=== PATIENT | male | born 1945 | race Caucasian/White ===

== ENCOUNTER 2016-06-21 12:05 | Outpatient (CLI) | payer MEDICARE, OTHER | END 2016-06-21 12:06 | disposition home or self-care (01) | DX: E11.29 Type 2 diabetes mellitus with other diabetic kidney complication (principal) ==

== ENCOUNTER 2016-08-23 13:23 | Outpatient (CLI) | payer MEDICARE, OTHER | END 2016-08-23 13:24 | disposition home or self-care (01) | DX: N19 Unspecified kidney failure (principal) ==

== ENCOUNTER 2016-08-27 08:00 | Outpatient (CLI) | payer MEDICARE, OTHER | END 2016-08-27 08:01 | disposition home or self-care (01) | DX: J98.4 Other disorders of lung (principal); I25.10 Atherosclerotic heart disease of native coronary artery without angina pectoris ==

== ENCOUNTER 2016-08-30 13:06 | Outpatient (CLI) | payer MEDICARE, OTHER | END 2016-08-30 13:07 | disposition home or self-care (01) | DX: K52.9 Noninfective gastroenteritis and colitis, unspecified (principal); K92.2 Gastrointestinal hemorrhage, unspecified ==

== ENCOUNTER 2016-08-31 10:57 | Emergency (ER) | payer MEDICARE, OTHER ==
[2016-08-31] MEDS ORDERED: SODIUM CHLORIDE 0.9% 1,000 ML IV ONE (11:00)
[2016-08-31] MEDS ORDERED: CIPROFLOXACIN 250 MG TABLET PO STA (15:12)
[2016-08-31] MEDS ORDERED: CIPROFLOXACIN 250 MG TABLET PO ONE (15:17)
== END 2016-08-31 15:54 | disposition home or self-care (01) ==
DX: K52.9 Noninfective gastroenteritis and colitis, unspecified (principal); D72.829 Elevated white blood cell count, unspecified; I10 Essential (primary) hypertension; E78.00 Pure hypercholesterolemia, unspecified; J44.9 Chronic obstructive pulmonary disease, unspecified; E11.9 Type 2 diabetes mellitus without complications; Z79.4 Long term (current) use of insulin; K21.9 Gastro-esophageal reflux disease without esophagitis; M19.90 Unspecified osteoarthritis, unspecified site; Z79.82 Long term (current) use of aspirin; F17.200 Nicotine dependence, unspecified, uncomplicated
CPT/HCPCS: 36415; 74176; 80053; 82270; 83690; 85025; 85610; 85730; 86850; 86900; 86901; 87045; 87046; 87493; 99284; A9270

== ENCOUNTER 2016-08-31 12:24 | Outpatient (CLI) | payer MEDICARE, OTHER | END 2016-08-31 12:25 | disposition home or self-care (01) | DX: K52.9 Noninfective gastroenteritis and colitis, unspecified (principal); K92.2 Gastrointestinal hemorrhage, unspecified ==

== ENCOUNTER 2016-10-02 08:17 | Outpatient (CLI) | payer MEDICARE, OTHER | END 2016-10-02 08:18 | disposition home or self-care (01) | DX: E11.29 Type 2 diabetes mellitus with other diabetic kidney complication (principal); Z12.5 Encounter for screening for malignant neoplasm of prostate; K21.9 Gastro-esophageal reflux disease without esophagitis | CPT/HCPCS: 36415; 80053; 82043; 83036; 84443; 85025; G0103 ==

== ENCOUNTER 2016-10-20 11:01 | Outpatient (CLI) | payer MEDICARE, OTHER ==
--- NOTE | 2016-10-20 22:05 | Ultrasound Report ---
EXAM: ANKLE-BRACHIAL INDEX EXAM DATE: 10/20/2016 12:04 PM. CLINICAL HISTORY: Bilateral calf pain. COMPARISON: None. TECHNIQUE: Realtime sonographic imaging of the ankle arteries was compared to pressures. Representati ve metastatic images were obtained for review. FINDINGS: Pressures (mmHg): Right brachial artery: 134/49. Left brachial artery: 129/48. Right posterior tibial artery: 79/51. Left posterior tibial artery: 55/44 Right anterior tibial artery: 59/44. Left anterior tibial artery: 90/62. Right ankle-brachial index is 0.58. Left ankle-brachial index is 0.69. Flow is monophasic in both anterior tibial arteries. 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 [facility] Referring Provider Line: [phone] SITE ID: [id number]
== END 2016-10-20 11:02 | disposition home or self-care (01) ==
LOC: DI 11:01
PROVIDERS: ATTEND Physician Assistant Medical
DX: I77.89 Other specified disorders of arteries and arterioles (principal)
CPT/HCPCS: 93922

== ENCOUNTER 2017-01-10 08:20 | Outpatient (CLI) | payer MEDICARE, OTHER ==
[2017-01-10 12:54] LABS: BASOPHILS # (AUTO) 0.1 10^3/uL (0.0-0.1); BASOPHILS % (AUTO) 0.7 %; EOSINOPHILS # (AUTO) 0.3 10^3/uL (0.0-0.7); EOSINOPHILS % (AUTO) 2.9 %; HGB - HEMOGLOBIN 14.2 g/dL (14.0-18.0); LYMPHOCYTES # (AUTO) 1.6 10^3/uL (1.5-3.5); LYMPHOCYTES % (AUTO) 17.4 %; MEAN CORPUSCULAR HEMOGLOBIN 28.4 pg (27.0-31.0); MEAN CORPUSCULAR HGB CONC 32.2 g/dL (32.0-36.0); MEAN CORPUSCULAR VOLUME 88.2 fL (80.0-94.0); MEAN PLATELET VOLUME 7.9 fL (7.4-11.4); MONOCYTES # (AUTO) 0.7 10^3/uL (0.0-1.0); MONOCYTES % (AUTO) 7.8 %; NEUTROPHILS # (AUTO) 6.7 10^3/uL (1.5-6.6); NEUTROPHILS % (AUTO) 71.2 %; NUCLEATED RED BLOOD CELLS AUTO 0.1 /100WBC; RED BLOOD COUNT 4.99 10^6/uL (4.70-6.10); RED CELL DISTRIBUTION WIDTH 15.6 % (12.0-15.0); UNCORRECTED WHITE BLOOD COUNT 9.4 x10^3/uL; WHITE BLOOD COUNT 9.4 x10^3/uL (4.8-10.8)
[2017-01-10 13:30] LABS: ALBUMIN/GLOBULIN RATIO 1.3 (1.0-2.2); BILIRUBIN,TOTAL 0.8 mg/dL (0.2-1.0); CALCIUM 9.2 mg/dL (8.5-10.3); CREATININE 2.3 mg/dL (0.6-1.2); TOTAL PROTEIN 7.2 g/dL (6.7-8.2)
[2017-01-10 13:38] LABS: HEMOGLOBIN A1C 0.78 g/dL
== END 2017-01-10 08:21 | disposition home or self-care (01) ==
LOC: LAB.WCP 08:20
PROVIDERS: ATTEND Physician Assistant Medical
DX: E11.29 Type 2 diabetes mellitus with other diabetic kidney complication (principal)
CPT/HCPCS: 36415; 80053; 83036; 85025

== ENCOUNTER 2017-03-18 08:21 | Outpatient (CLI) | payer MEDICARE, OTHER ==
[2017-03-18] MEDS ORDERED: BARIUM SULFATE 1,900 ML BOTTLE RC SCH (12:00)
--- NOTE | 2017-03-18 12:34 | XRAY Report ---
DOUBLE CONTRAST BARIUM ENEMA: 03/18/2017 CLINICAL INDICATION: History of colon polyp. COMPARISON: CT of 08/31/2016, previous barium enema of 02/20/2012. FINDINGS: Initial can intake worker view of the abdomen demonstrates a normal bowel gas pattern. The barium enem a tip was inserted, the balloon inflated, and double contrast barium enema was performed. The colon is normal in caliber. Sigmoid diverticulosis is again noted. No polyp or constricting mass lesion is appreciated. Specifically, the mid transverse colon now demonstrates normal caliber, where there was inflammatory narrowing on CT of 08/31/2016. The cecum distends normally. The appendix opaci fies with contrast. IMPRESSION: DIVERTICULOSIS. NO EVIDENCE OF POLYP OR CONSTRICTING MASS LESION. FLUOROSCOPY TIME: 3 MINUTES 30 SECONDS; 7 SPOT IMAGES OBTAINED. JOB #: [id number] EXT JOB #:[id number]
== END 2017-03-18 08:22 | disposition home or self-care (01) ==
LOC: DI 08:21
PROVIDERS: ATTEND Physician Assistant Medical
DX: K57.30 Diverticulosis of large intestine without perforation or abscess without bleeding (principal)
CPT/HCPCS: 74280; A9270

== ENCOUNTER 2017-09-03 08:00 | Outpatient (CLI) | payer MEDICARE, OTHER ==
[2017-09-03 12:19] LABS: BASOPHILS % (AUTO) 0.4 %; EOSINOPHILS # (AUTO) 0.3 10^3/uL (0.0-0.7); EOSINOPHILS % (AUTO) 3.4 %; HGB - HEMOGLOBIN 12.7 g/dL (14.0-18.0); LYMPHOCYTES # (AUTO) 1.4 10^3/uL (1.5-3.5); LYMPHOCYTES % (AUTO) 17.2 %; MEAN CORPUSCULAR HEMOGLOBIN 27.7 pg (27.0-31.0); MEAN CORPUSCULAR HGB CONC 32.8 g/dL (32.0-36.0); MEAN CORPUSCULAR VOLUME 84.4 fL (80.0-94.0); MEAN PLATELET VOLUME 7.4 fL (7.4-11.4); MONOCYTES # (AUTO) 0.7 10^3/uL (0.0-1.0); MONOCYTES % (AUTO) 8.5 %; NEUTROPHILS # (AUTO) 5.8 10^3/uL (1.5-6.6); NEUTROPHILS % (AUTO) 70.5 %; PLT - PLATELET COUNT 252 10^3/uL (130-450); RED CELL DISTRIBUTION WIDTH 17.6 % (12.0-15.0); WHITE BLOOD COUNT 8.3 x10^3/uL (4.8-10.8)
[2017-09-03 12:32] LABS: HB2 TOTAL 13.7 g/dL; HEMOGLOBIN A1C 0.64 g/dL; HEMOGLOBIN A1C % 6.4 % (4.6-6.2)
[2017-09-03 12:48] LABS: ALBUMIN 3.6 g/dL (3.2-5.5); ALBUMIN/GLOBULIN RATIO 1.1 (1.0-2.2); ALKALINE PHOSPHATASE 64 IU/L (42-121); ALT ALANINE AMINOTRANSFERASE 11 IU/L (10-60); AST ASPARTATE AMINOTRANSFERASE 13 IU/L (10-42); BILIRUBIN,TOTAL 0.3 mg/dL (0.2-1.0); BUN - BLOOD UREA NITROGEN 31 mg/dL (6-20); CALCIUM 8.7 mg/dL (8.5-10.3); CARBON DIOXIDE - CO2 28 mmol/L (21-32); CHLORIDE 104 mmol/L (101-111); CHOL/HDL RATIO 4.1 (<5.0); CHOLESTEROL 127 mg/dL; CREATININE 1.9 mg/dL (0.6-1.2); GFR - MDRD 35 (>89); GLUCOSE 81 mg/dL (70-100); HDL CHOLESTEROL 31 mg/dL; LDL CHOLESTEROL,CALCULATED 66 mg/dL; LDL/HDL RATIO 2.1 (<3.6); SODIUM 137 mmol/L (135-145); VLDL CHOLESTEROL 30 mg/dL
== END 2017-09-03 08:01 | disposition home or self-care (01) ==
LOC: LAB.WCP 08:00
PROVIDERS: ATTEND Physician Assistant Medical
DX: E11.29 Type 2 diabetes mellitus with other diabetic kidney complication (principal); R97.20 Elevated prostate specific antigen [PSA]; D64.9 Anemia, unspecified
CPT/HCPCS: 36415; 80053; 80061; 82043; 83036; 83721; 84153; 84443; 85025

== ENCOUNTER 2017-09-17 10:50 | Outpatient (CLI) | payer MEDICARE, OTHER ==
--- NOTE | 2017-09-17 11:31 | CT Report ---
CT BRAIN WITHOUT CONTRAST: 09/17/2017 CLINICAL INDICATION: Fall, headache. TECHNIQUE: Axial CT images of the brain were obtained without intravenous contrast. COMPARISON: No previous CT is available for comparison. FINDINGS: The ventricles and sulci are normal in size, shape and configuration. The basilar cisterns are patent. There is no evidence of intracranial hemorrhage, mass effect, or midline shift. The visualized orbital contents and paranasal sinuses are unremarkable. IMPRESSION: NO EVIDENCE OF INTRACRANIAL HEMORRHAGE OR MASS EFFECT. CT DOSE REDUCTION STATEMENT In accordance with CT protocol optimization, one or more of the following dose reduction techniques were utilized for this exam: automated exposure control, adjustment of mA and/or KV based on patient size, or use of iterative reconstructive technique. TD: 09/17/2017 11:31
== END 2017-09-17 10:51 | disposition home or self-care (01) ==
LOC: DI 10:50
PROVIDERS: ATTEND Physician Assistant Medical
DX: G44.309 Post-traumatic headache, unspecified, not intractable (principal)
CPT/HCPCS: 70450